=== PATIENT | male | born 2000 | race American Indian/Alaskan Native ===

== ENCOUNTER 2022-06-08 21:30 | Emergency (ER) | payer SELFPAY ==
[~2022-06-08] VITALS: Ht 188 cm; Wt 77.3 kg
[2022-06-08 21:49] VITALS: TEMP 99.3
[2022-06-08 22:26] LABS: BASO % 0.7 % (0.0-2.0); EOS # 0.2 K/mm3 (0.0-0.7); EOS % 3.1 % (0.0-4.0); GRAN % 35.6 % (42.2-75.2); HEMATOCRIT 45.4 % (42.0-52.0); HEMOGLOBIN 15.7 g/dl (13.5-18.0); LYMPH # 2.6 K/mm3 (1.2-3.4); LYMPH % 47.8 % (20.0-51.0); MEAN CELL VOLUME 88 fl (80.0-100.0); MEAN CORPUSCULAR HEMOGLOBIN 30 pg (27-31); MEAN CORPUSCULAR HGB CONC 35 g/dl (33.0-37.0); MEAN PLATELET VOLUME 9.7 fl (7.4-10.4); MONO # 0.7 K/mm3 (0.1-0.6); MONO % 12.4 % (1.7-9.3); PLATELET COUNT 254 K/mm3 (130-400); RED BLOOD COUNT 5.16 M/mm3 (4.20-5.60); REDCELL DISTRIBUTION WIDTH-CV 12.4 % (11.5-14.5)
[2022-06-08 22:44] LABS: ALANINE AMINOTRANSFERASE 20 U/L (0-55); ALBUMIN 3.9 gm/dL (3.5-5.0); ALKALINE PHOSPHATASE 85 U/L (40-150); ANION GAP 9 mmol/L (7-16); AST,SGOT 21 U/L (5-34); BILIRUBIN,TOTAL 0.6 mg/dL (0.2-1.2); BLOOD UREA NITROGEN 8 mg/dL (9-21); CALCIUM 8.5 mg/dL (8.4-10.2); CARBON DIOXIDE 26 mmol/L (22-29); CHLORIDE 105 mmol/L (98-107); CREATININE, serum 0.86 mg/dL (0.72-1.25); GLUCOSE 99 mg/dL (70-99); POTASSIUM 3.9 mmol/L (3.5-4.5); SODIUM 140 mmol/L (136-145)
[2022-06-08 22:51] LABS: TROPONIN-I < 0.010 ng/mL (0.00-0.033)
[2022-06-08 23:36] VITALS: BP 111/81; PULSE 78
== END 2022-06-08 23:37 | disposition home or self-care (01) ==
LOC: COL.ER 21:30
PROVIDERS: Emergency Medicine
DX: I95.1 Orthostatic hypotension (principal); F17.290 Nicotine dependence, other tobacco product, uncomplicated
CPT/HCPCS: J7030

== ENCOUNTER 2022-11-26 13:44 | Emergency (ER) | payer SELFPAY ==
[~2022-11-26] VITALS: Ht 188 cm; Wt 81.8 kg
[2022-11-26 13:50] VITALS: TEMP 97.2
[2022-11-26 14:24] LABS: COLLECTION METHOD CLEAN CATCH
[2022-11-26 14:29] LABS: URINE APPEARANCE Clear (CLEAR/HAZY); URINE BLOOD Negative (NEGATIVE); URINE COLOR Yellow (YELLOW); URINE GLUCOSE Negative (NEGATIVE); URINE KETONE Negative (NEGATIVE); URINE NITRATE Negative (NEGATIVE); URINE PROTEIN(semi-quant) Negative (NEGATIVE); URINE UROBILINOGEN 0.2 E.U/dL (0.2-1.0)
[2022-11-26 14:41] LABS: SQUAMOUS EPITHELIAL None Seen /hpf (0-10); URINE BACTERIA None Seen /hpf (NONE SEEN); URINE RBC 0-2 /hpf (0-2)
[2022-11-26 14:53] LABS: BASO % 0.7 % (0.0-2.0); EOS # 0.2 K/mm3 (0.0-0.7); GRAN # 2.9 K/mm3 (1.4-6.5); GRAN % 51.6 % (42.2-75.2); HEMATOCRIT 47.3 % (42.0-52.0); HEMOGLOBIN 16.4 g/dl (13.5-18.0); LYMPH % 35.1 % (20.0-51.0); MEAN CELL VOLUME 88 fl (80.0-100.0); MEAN CORPUSCULAR HEMOGLOBIN 31 pg (27-31); MEAN CORPUSCULAR HGB CONC 35 g/dl (33.0-37.0); MEAN PLATELET VOLUME 10.5 fl (7.4-10.4); MONO # 0.5 K/mm3 (0.1-0.6); MONO % 8.9 % (1.7-9.3); PLATELET COUNT 250 K/mm3 (130-400); RED BLOOD COUNT 5.37 M/mm3 (4.20-5.60); REDCELL DISTRIBUTION WIDTH-CV 11.7 % (11.5-14.5)
[2022-11-26 15:14] LABS: ALBUMIN 4.2 gm/dL (3.5-5.0); BILIRUBIN,TOTAL 0.6 mg/dL (0.2-1.2); C-REACTIVE PROTEIN 0.09 mg/dL (0.00-0.50); CALCIUM 9.4 mg/dL (8.4-10.2); CREATININE, serum 1.11 mg/dL (0.72-1.25); POTASSIUM 3.9 mmol/L (3.5-4.5); TOTAL PROTEIN 7.7 gm/dL (6.2-8.1)
[2022-11-26 15:39] VITALS: BP 123/90; PULSE 96
== END 2022-11-26 15:40 | disposition home or self-care (01) ==
LOC: COL.ER 13:44
PROVIDERS: Emergency Medicine; Nurse Practitioner
DX: M54.6 Pain in thoracic spine (principal); R11.0 Nausea; Z28.311 Partially vaccinated for COVID-19

== ENCOUNTER 2023-01-11 18:28 | Emergency (ER) | payer SELFPAY ==
[~2023-01-11] VITALS: Ht 188 cm; Wt 95.5 kg
[2023-01-11 18:33] VITALS: TEMP 98.3
[2023-01-11 19:05] LABS: BASO % 0.4 % (0.0-2.0); EOS # 0.3 K/mm3 (0.0-0.7); EOS % 4.6 % (0.0-4.0); GRAN # 3.8 K/mm3 (1.4-6.5); GRAN % 51.3 % (42.2-75.2); HEMATOCRIT 45.5 % (42.0-52.0); HEMOGLOBIN 15.7 g/dl (13.5-18.0); LYMPH # 2.5 K/mm3 (1.2-3.4); LYMPH % 33.1 % (20.0-51.0); MEAN CELL VOLUME 88 fl (80.0-100.0); MEAN CORPUSCULAR HEMOGLOBIN 30 pg (27-31); MEAN CORPUSCULAR HGB CONC 35 g/dl (33.0-37.0); MEAN PLATELET VOLUME 10.2 fl (7.4-10.4); MONO # 0.8 K/mm3 (0.1-0.6); MONO % 10.3 % (1.7-9.3); PLATELET COUNT 261 K/mm3 (130-400); RED BLOOD COUNT 5.17 M/mm3 (4.20-5.60); REDCELL DISTRIBUTION WIDTH-CV 11.7 % (11.5-14.5)
[2023-01-11 19:17] LABS: ALBUMIN 4.3 gm/dL (3.5-5.0); BILIRUBIN,TOTAL 0.4 mg/dL (0.2-1.2); CALCIUM 9.1 mg/dL (8.4-10.2); CREATININE, serum 0.95 mg/dL (0.72-1.25); POTASSIUM 3.8 mmol/L (3.5-4.5); TOTAL PROTEIN 7.5 gm/dL (6.2-8.1)
[2023-01-11] MEDS ORDERED: PROTONIX 40MG T40 MG PO (19:41)
[2023-01-11 20:15] VITALS: BP 114/71; PULSE 68
== END 2023-01-11 20:15 | disposition home or self-care (01) ==
LOC: COL.ER 18:28
PROVIDERS: Nurse Practitioner Primary Care
DX: K29.70 Gastritis, unspecified, without bleeding (principal); F17.290 Nicotine dependence, other tobacco product, uncomplicated
CPT/HCPCS: J1885; J2405; J7120